=== PATIENT | male | born 1970 | race Caucasian/White ===

== ENCOUNTER 2024-04-07 00:18 | Emergency (ER) | payer BC, SELFPAY ==
[2024-04-07] VITALS (27 sets, daily range): BP systolic 100–133; BP diastolic 55–94; PULSE 77–94; RESP 11–20; TEMP 35.9–36.7; O2SAT 94–99; BMI 22.8
--- NOTE | 2024-04-07 01:29 | EKG12_ITS ---
Test Reason : CP Blood Pressure : / mmHG Vent. Rate : 085 BPM Atrial Rate : 085 BPM P-R Int : 136 ms QRS Dur : 090 ms QT Int : 350 ms P-R-T Axes : 031 071 052 degrees QTc Int : 416 ms Normal sinus rhythm Normal ECG Confirmed by Levy Gan ([id number]), editor greeting card KEAGAN ROSS ([id number]) on 04/07/2024 12:53:44 PM Referred By: VALENTIN Confirmed By:Levy Gan
[2024-04-07 01:36] LABS: Absolute Lymphocyte Count 1.68 X10^3/uL (0.83-4.51); Absolute Neutrophil Count 9.5 X10^3/uL (2.0-7.7); Basophil# 0.12 X10^3/uL; Eosinophil# 0.05 X10^3/uL; Eosinophils% 0.4 % (0-5); Hematocrit 48.8 % (40-54); Lymphocyte # 1.68 X10^3/ul (0.83-4.51); Lymphocyte % 14.3 % (19-41); Mean Corp Hgb Conc 32.8 g/dL (32-36); Mean Corpuscular Hgb 27.9 pg (27.0-32.0); Mean Platelet Vol. 11.2 fl (6.2-12.0); Monocyte% 3.4 % (0-10); NRBC Flagged by Analyzer 0 % (0-5); Neutrophil % 80.6 % (47-70); Platelet Count 315 K/mm3 (150-450); RBC Distribution Width CV 12.9 % (11.6-14.6); Red Blood Count 5.74 M/mm3 (4.6-6.2); White Blood Count 11.8 K/mm3 (4.4-11.0)
--- NOTE | 2024-04-07 01:39 | ED.VIS.CHEST ---
HPI History of Present Illness Chief Complaint: Chest Pain Informant: patient and spouse/S.O. Narrative Narrative: 53-year-old male states he has been having acid reflux for the past 8 or 9 months, he is not on any medication for it he does self treats with Tums on occasion. He and his state that he has noticed he used to eat a lot but now he is not able to, he has to pause detention in between, I think because of discomfort in his chest. He has a same discomfort tonight except he has been vomiting off-and-on all night, no blood, no coffee-ground emesis, and the heaviness/pressure in his chest will go away. Takes no prescriptions. This is the first time he is ever been evaluated for this complaint or problem. Denies any melena or abdominal pain, just chest pain and no dyspnea, palpitations, syncope or presyncope. [facility] Medical History COVID-19 no medical history Home Medications ?Medication ?Instructions ?Recorded ?Last Taken ?Type NK 04/07/24 Unknown History Allergy/AdvReac Type Severity Reaction Status Date / Time No Known Allergies Allergy Verified 04/07/24 00:20 Social History Smoking Status: Former smoker ROS ROS ED Constitutional Constitutional ED: Denies chills or fever(s) Eyes Eyes: Denies change in vision or diplopia ENT ENT ED: Denies rhinorrhea or sore throat Cardiovascular Cardiovascular: Reports chest pain; Denies palpitations or syncope Respiratory/Chest Respiratory/Chest: Denies cough or dyspnea Gastrointestinal Gastrointestinal: Reports as per HPI, heartburn, nausea and vomiting; Denies abdominal pain, diarrhea, hematemesis, hematochezia or melena Genitourinary Genitourinary ED: Denies dysuria or hematuria Musculoskeletal Musculoskeletal: Denies back pain or neck pain Integumentary Denies abscess or rash Neurologic Neurologic: Denies headache(s), paresthesias or weakness Psychiatric Psychiatric: Denies anxiety or suicidal thoughts EXAM Physical Exam Const Vital Signs: 04/07/24 00:20 04/07/24 01:18 04/07/24 01:34 Temperature 96.7 F L Temperature Source Temporal Pulse Rate 77 80 83 Respiratory Rate 20 H 16 14 Blood Pressure 127/81 H 130/83 H Blood Pressure Mean 96 98 Pulse Ox 99 97 94 Oxygen Delivery Method Room Air Room Air 04/07/24 01:45 04/07/24 01:49 04/07/24 02:00 Temperature Temperature Source Pulse Rate 81 87 Respiratory Rate 11 L 20 H Blood Pressure 130/83 H 106/84 H Blood Pressure Mean 99 93 Pulse Ox 94 94 Oxygen Delivery Method Room Air 04/07/24 02:15 04/07/24 02:30 04/07/24 02:45 Temperature Temperature Source Pulse Rate 88 83 91 Respiratory Rate 14 14 11 L Blood Pressure 120/87 H 123/66 H 120/69 Blood Pressure Mean 97 83 83 Pulse Ox 96 95 96 Oxygen Delivery Method 04/07/24 03:00 04/07/24 03:15 04/07/24 03:30 Temperature Temperature Source Pulse Rate 92 94 Respiratory Rate 13 16 Blood Pressure 124/75 H 111/71 115/76 Blood Pressure Mean 89 81 88 Pulse Ox 94 97 Oxygen Delivery Method Room Air 04/07/24 03:45 04/07/24 03:52 04/07/24 04:00 Temperature Temperature Source Pulse Rate 94 Respiratory Rate 13 Blood Pressure 105/55 L 109/74 Blood Pressure Mean 69 85 Pulse Ox 97 Oxygen Delivery Method 04/07/24 04:15 04/07/24 04:30 04/07/24 04:45 Temperature Temperature Source Pulse Rate 88 85 88 Respiratory Rate 12 13 11 L Blood Pressure 105/71 108/73 102/71 Blood Pressure Mean 82 82 80 Pulse Ox 95 95 97 Oxygen Delivery Method 04/07/24 05:00 04/07/24 05:15 04/07/24 05:30 Temperature Temperature Source Pulse Rate 77 92 Respiratory Rate Blood Pressure 100/69 116/73 116/85 H Blood Pressure Mean 79 87 95 Pulse Ox 95 96 Oxygen Delivery Method 04/07/24 05:45 04/07/24 06:00 04/07/24 06:15 Temperature Temperature Source Pulse Rate 84 Respiratory Rate 14 Blood Pressure 108/79 113/80 122/83 H Blood Pressure Mean 90 90 94 Pulse Ox 96 95 Oxygen Delivery Method Positive well nourished and well developed Constitutional Narrative: Initial evaluation patient resting comfortably, then he starts to feel nauseated and actively vomiting multiple times, clear nonbilious nonbloody General Appearance ED: well developed and NAD HEENT Reports moist mucous membranes normocephalic and atraumatic Eyes PERRL and EOMs intact bilaterally Neck full ROM and supple Chest Wall inspection of chest normal and palpation of chest normal Resp normal respiratory effort and clear to auscultation bilaterally Cardio regular rate, regular rhythm and no murmurs Rate: Negative for tachycardic GI non-tender and non-distended Auscultation: normoactive bowel sounds Palpation: soft Back/Spine no CVA tenderness General Back: other FROM Extremity normal to inspection General Extremety ED: Negative for edema, pulses abnormal or tenderness General Extremity: Negative for edema or pulses abnormal Neuro oriented x3, CN's II-XII intact bilaterally and no sensory deficits noted Sensorium / Orientation: awake and alert Motor Exam: strength 5/5 throughout Psych mental status grossly normal Skin no rashes or lesions noted and no wounds Heart Score History: Slightly/Non-Suspicious ECG: Normal Age: >45 - <65 years Risk Factors: 1 or 2 Risk Factors (former smoker) Troponin: </= Normal Limit Score: 2 MDM MDM MDM Narrative Medical decision making narrative: Initially performed somewhat of a cardiac workup, his EKG and troponin and blood work are all normal except for a mild leukocytosis. He was actively vomiting so I gave him some Zofran and went back after he was feeling better and reexamined his abdomen, it is benign. States he was having some mild discomfort in his upper abdomen before coming here but that is better and he is nontender. 2 view chest x-ray was obtained, it shows an abnormal fullness/shadow with an air bubble in the right lower thoracic cavity. I spoke with radiology about this. She is concerned it may be his stomach, but a different mass is in the differential, and she recommends getting a CT of at least the chest in order to evaluate the right hilum which she is not able to fully visualize, I discussed getting CTA abdomen and pelvis as well in order to rule out a bowel obstruction so she could evaluate the rest of the bowel which she said was also reasonable to do. Therefore we obtained a CT of the chest, abdomen, pelvis with IV contrast. I reviewed the imaging and the results and discussed with the radiologist again. There were delays here, but the radiologist states this is an acute stomach volvulus, appears to be a paraesophageal hernia where the majority of the stomach is in the chest supradiaphragmatic with the exception of the pylorus, and there is some signs of necrosis of the stomach wall with some intraluminal air as well as some related nearby extraluminal air that is assumed to be in the mesenteric vein but not quite to the liver yet. Clinically patient is comfortable. I discussed with surgery Dr. Isabel, who recommends transferring the patient to a place that has cardiothoracic surgery capabilities as this may need both specialist for. Patient prefers [facility] if possible. Discussed with Dr. Hensley with surgery at [facility], he agrees that the patient should be sent there soon as possible, requested we give some antibiotics, given Zosyn, will be made n.p.o., discussed with the ER physician Dr. Arnold who accept the patient ER to ER transfer. Lab Data Attestation: I reviewed the patient's lab results. Labs: Laboratory Results - last 24 hr 04/07/24 04/07/24 00:35 03:55 WBC 11.8 H RBC 5.74 Hgb 16.0 Hct 48.8 MCV 85.0 MCH 27.9 MCHC 32.8 RDW Std Deviation 40.0 RDW Coeff of Vincent 12.9 Plt Count 315 MPV 11.2 Immature Gran % (Auto) 0.300 Neut % (Auto) 80.6 H Lymph % (Auto) 14.3 L [place] % (Auto) 3.4 Eos % (Auto) 0.4 Baso % (Auto) 1.0 Absolute Neuts (auto) 9.5 H Absolute Lymphs (auto) 1.68 Nucleated RBC % 0 Sodium 141 Potassium 4.0 Chloride 107 Carbon Dioxide 25.0 Anion Gap 9 BUN 19 H Creatinine 1.15 Estim Creat Clear Calc 80.40 Est GFR (MDRD) Af Amer 85 Est GFR (MDRD) Non-Af 71 BUN/Creatinine Ratio 16.5 Glucose 142 H Calcium 9.9 Troponin I High Sens < 3 L < 3 L Radiography Diagnostic Testing: Clinical Impression(s) from Imaging Studies Chest X-Ray 04/07/24 02:10 IMPRESSION: 1. Large zone of opacity thought to involve much of the right lower lobe with obscured visualization of most of the right hemidiaphragm but well visualized right heart margin, appearance suggesting left lower lobe consolidation with persistent aerated right middle lobe. 2. Primary considerations include right lower lobe pneumonia and postobstructive pneumonitis due to an occult central airway obstructing mass. Right mainstem bronchus appears patent. An unusually large pulmonary infarct or large muitojqjww-uzqplby-xuyxm mass could occasionally have this appearance. 3. Cannot completely exclude right posterior diaphragmatic hernia with superiorly herniated abdominal fat and/or liver parenchyma, but it is thought to be less likely. 4. No prior exam is provided. Chest CT could be considered if it is thought to be indicated. Electronically Signed: Vanna Garnett MD at 3:18 EDT , ADDENDUM: 04/07/24 0333 IMPRESSION: 1. Large zone of opacity thought to involve much of the right lower lobe with obscured visualization of most of the right hemidiaphragm but well visualized right heart margin, appearance suggesting left lower lobe consolidation with persistent aerated right middle lobe. 2. Primary considerations include right lower lobe pneumonia and postobstructive pneumonitis due to an occult central airway obstructing mass. Right mainstem bronchus appears patent. An unusually large pulmonary infarct or large fhrzxpdsbv-emqxwpi-pypqr mass could occasionally have this appearance. 3. Cannot completely exclude right posterior diaphragmatic hernia with superiorly herniated abdominal fat and/or liver parenchyma, but it is thought to be less likely. 4. No prior exam is provided. Chest CT could be considered if it is thought to be indicated. N.B. : The above Results were Read Back by Vanna Garnett MD to Dr. Nirmal Sorenson MD, and understanding confirmed on 04/07/2024 03:26:32 (ET). Electronically Signed: Vanna Garnett MD at 3:18 EDT , Chest/Abdomen/Pelvis CT 04/07/24 03:25 IMPRESSION: 1. Gastric hernia, distention, volvulus and obstruction. Large hiatal hernia of essentially all of the stomach with only pylorus in subdiaphragmatic position. 2. Mild scattered right pneumothorax. 3. Distal stomach wall pneumatosis and a slight amount of extraluminal presumed mesenteric venous gas due to early stomach bowel wall necrosis. 4. Scattered diverticulosis. No evidence of acute diverticulitis or appendicitis 5. 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 Electronically Signed: Vanna Garnett MD at 5:58 EDT Reading Location ID and State: [facility] / [place] Tel , Service support , Rhythm Strip Rhythm Strip: Sinus Rhythm Rate: 85 Ectopy: None EKG Initial EKG: Attestation: I personally reviewed and interpreted this EKG as follows: Interpretation: Sinus Rhythm and No Acute Injury Pattern Comments: normal EKG Management Discussion w/another healthcare provider: Hazardous Waste Material Technician and Radiologist Critical Care Time Critical Care Time: Yes Critical care time (excluding procedures): 30-74 minutes (36 min), Including time spent:, Discussing w/Patient &/or Family/Drawer In Stitch [employer]ing Machine, Discussing w/Consultants, Arranging Admission or Transfer and Performing Direct Patient Care at Bedside Discharge Plan Triage Chief Complaint: Chest Pain ED Provider: Nirmal Sorenson Dx/Rx/DC Orders Clinical Impression: Acute gastric volvulus, Paraesophageal hiatal hernia Prescriptions: No Action NK Primary Care Provider: Ascencion Salazar Referrals: Ascencion Salazar MD [Primary Care Provider] - Print Language: Syriac Disposition Disposition: Acute Care Hospital Discharge Location: [facility]
[2024-04-07] MEDS: Ondansetron 4 MG/2 ML Vial IV (01:46)
[2024-04-07 01:56] LABS: Anion Gap 9 (5-15); BUN 19 mg/dL (7-18); BUN/Creat Ratio 16.5 RATIO (10-20); Calcium,Total 9.9 mg/dL (8.5-10.1); Chloride 107 mmol/L (98-107); Creatinine, Serum 1.15 mg/dL (0.70-1.30); EST Glomerular Filtration Rate 71 mL/min (>60); Est Glom Filt Rate - Afr Amer 85 mL/min (>60); Glucose 142 mg/dL (74-106); Sodium Level 141 mmol/L (136-145); Troponin-I HS (w/2H Reflex) < 3 pg/mL (3.0-78.0)
--- NOTE | 2024-04-07 02:10 | RAD_ITS ---
We are attempting to reach an attending provider to discuss findings. An addendum with communication details will be sent when the communication is complete. EXAM: XR CHEST, 1 VIEW CLINICAL INDICATION: chest pain TECHNIQUE: Frontal view of the chest. COMPARISON: No relevant prior studies available. FINDINGS: LUNGS AND PLEURAL SPACES: There is a large zone of opacity obscuring most of the central and medial right hemidiaphragm, with fairly sharp right lateral costophrenic angle, lobulated superior margin of the opacity. Considerations include large zone of right basilar airspace disease and right diaphragmatic hernia, suspected to be right basilar lower lobe airspace disease since the right heart margin is well seen suggesting persistent aeration of the right middle lobe. No pneumothorax. No effusion. HEART: Unremarkable. Cardiac silhouette not enlarged. MEDIASTINUM: Central airways and mediastinal contour are unremarkable. BONES/JOINTS: Unremarkable. No acute fracture. SOFT TISSUES: Unremarkable. RAD/Chest 1 View (Portable) IMPRESSION: 1. Large zone of opacity thought to involve much of the right lower lobe with obscured visualization of most of the right hemidiaphragm but well visualized right heart margin, appearance suggesting left lower lobe consolidation with persistent aerated right middle lobe. 2. Primary considerations include right lower lobe pneumonia and postobstructive pneumonitis due to an occult central airway obstructing mass. Right mainstem bronchus appears patent. An unusually large pulmonary infarct or large lbozbszvcx-ugouwcw-tbxyp mass could occasionally have this appearance. 3. Cannot completely exclude right posterior diaphragmatic hernia with superiorly herniated abdominal fat and/or liver parenchyma, but it is thought to be less likely. 4. No prior exam is provided. Chest CT could be considered if it is thought to be indicated. Electronically Signed: Vanna Garnett MD at 3:18 EDT ,
[2024-04-07] MEDS: Mag Hydrox/Al Hydrox/Simeth 30 ML UDC PO (02:57)
--- NOTE | 2024-04-07 03:25 | CT_ITS ---
EXAM: CT CHEST, ABDOMEN AND PELVIS WITH INTRAVENOUS CONTRAST CLINICAL INDICATION: chest pain, vomiting, upper abd pain TECHNIQUE: Helically acquired images were obtained of the chest, abdomen and pelvis with intravenous contrast. This CT exam was performed using one or more of the following dose reduction techniques: automated exposure control, adjustment of the mA and/or kV according to patient size, and/or use of iterative reconstruction technique. CONTRAST: IV 100mL [id number]-370 RADIATION DOSE: 17.79 mGy, DLP = 1442.25 mGy-cm. COMPARISON: No relevant prior studies available. FINDINGS: CHEST: LUNGS AND PLEURAL SPACES: There is slight left pneumothorax anterior and medial to the right upper lobe anterior to the right lung base and right epicardial fat. Mild right pleural effusion and small left subpulmonic component of pneumothorax. No mass. HEART: Unremarkable. Heart size is normal. No pericardial effusion. MEDIASTINUM: Large hiatal hernia, midline hernia defect at least 7.3 cm oblique measurement, with essentially complete gastric hernia, gastric obstruction, gastric volvulus, pylorus entering the abdomen, and marked distention of the stomach with volvulus, it is 13.6 cm craniocaudal by 14.3 cm AP. No mediastinal or hilar adenopathy. Esophagus is unremarkable. THYROID: Unremarkable. No thyroid lesions. ABDOMEN: LIVER: Unremarkable. No portal venous gas in the liver.. Suspicion of pneumatosis in the anterior distal stomach wall on axial images. GALLBLADDER AND BILE DUCTS: Unremarkable. No calcified gallstones. No gallbladder distention or wall edema. No intra- or extrahepatic biliary ductal dilation. PANCREAS: Unremarkable. No focal cystic or solid mass. SPLEEN: Unremarkable. Normal size without focal cystic or solid mass. ADRENALS: Unremarkable. No nodules. KIDNEYS AND URETERS: Absence of the left kidney. Normal renal size and position. No hydronephrosis. STOMACH AND BOWEL: Moderate scattered diverticulosis in much of the colon, no evidence of acute diverticulitis or pericolonic air. PELVIS: APPENDIX: Normal appendix is best seen on coronal images. BLADDER: Unremarkable. REPRODUCTIVE: Mild prostatomegaly, 4.4 cm x 4 cm. CHEST, ABDOMEN and PELVIS: INTRAPERITONEAL SPACE: There is some trace extraluminal air deep to the stomach along the inferior-lateral margin of the hernia, consistent with very early mesenteric venous gas and early gastric wall necrosis, this is best seen on axial images 105-107 and coronal images 197, 1 6. No ascites or other fluid collection. BONES/JOINTS: Unremarkable. No suspicious lytic or blastic abnormality. SOFT TISSUES: There is moderate consolidation of left lower lobe superior to the large hernia. Mild fat-containing right inguinal hernia. VASCULATURE: See above. LYMPH NODES: Unremarkable. No enlarged lymph nodes. OTHER FINDINGS: Mild vacuum disc at L5-S1. CT/CT Chest, Abd, Pel w/Contrast IMPRESSION: 1. Gastric hernia, distention, volvulus and obstruction. Large hiatal hernia of essentially all of the stomach with only pylorus in subdiaphragmatic position. 2. Mild scattered right pneumothorax. 3. Distal stomach wall pneumatosis and a slight amount of extraluminal presumed mesenteric venous gas due to early stomach bowel wall necrosis. 4. Scattered diverticulosis. No evidence of acute diverticulitis or appendicitis 5. 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 Electronically Signed: Vanna Garnett MD at 5:58 EDT ,
[2024-04-07 03:32] LABS: Reflex Troponin-HS? (from REC) Y
[2024-04-07 04:20] LABS: Troponin-I HS < 3 pg/mL (3.0-78.0)
--- NOTE | 2024-04-07 06:43 | NURSING ---
CALLED [facility], ETA IS WITHIN THE HOUR
[2024-04-07] MEDS: 0.9% Normal Saline (1000mL) 1,000 ML 999 ML IV (06:50)
[2024-04-07] MEDS: Piperacil/Tazobactam 3.375 GM in 0.9% Normal Saline (50mL MB+) 50 ML IV (06:51)
== END 2024-04-07 07:37 | disposition short-term general hospital (02) ==
PROVIDERS: Emergency Provider Emergency Medicine; PCP Family Medicine; Visit Provider Emergency Medicine
DX: K31.89 Other diseases of stomach and duodenum (principal); K44.9 Diaphragmatic hernia without obstruction or gangrene; Z87.891 Personal history of nicotine dependence; Z86.16 Personal history of COVID-19
CPT/HCPCS: 71045; 71260; 74177; 80048; 84484; 85025; 93005; 96365; 96375; 99284; Q9967; A4216; J2405